=== PATIENT | female | born 2000 | race Two or more races ===

== ENCOUNTER 2021-01-30 18:29 | Emergency (ER) | payer OTHER ==
[~2021-01-30] VITALS: Ht 165.1 cm; Wt 71.2 kg
[2021-01-30] MEDS ORDERED: TRI-LO-SPRINTE1 EACH PO (18:50)
[2021-01-30] MEDS ORDERED: DICLOFENAC SODI75 MG PO (19:41)
== END 2021-01-30 19:56 | disposition home or self-care (01) ==
LOC: ER 18:29
DX: S80.02XA Contusion of left knee, initial encounter (principal); W06.XXXA Fall from bed, initial encounter; Y93.89 Activity, other specified; Y92.092 Bedroom in other non-institutional residence as the place of occurrence of the external cause

== ENCOUNTER 2021-08-06 14:44 | Emergency (ER) | payer OTHER ==
[~2021-08-06] VITALS: Ht 167.6 cm; Wt 70.3 kg
[~2021-08-06 14:44] MED LIST: DICLOFENAC SODI75 MG PO; TRI-LO-SPRINTE1 EACH PO
[2021-08-06] MEDS ORDERED: ZOFRAN8 MG PO (19:07)
[2021-08-06] MEDS ORDERED: PEPCID AC20 MG PO (19:07)
== END 2021-08-06 19:39 | disposition home or self-care (01) ==
LOC: ER 14:44
DX: K52.89 Other specified noninfective gastroenteritis and colitis (principal); Z03.818 Encounter for observation for suspected exposure to other biological agents ruled out; R11.11 Vomiting without nausea

== ENCOUNTER 2022-04-27 18:42 | Emergency (ER) | payer OTHER ==
[~2022-04-27] VITALS: Ht 165.1 cm; Wt 77.1 kg
[~2022-04-27 18:42] MED LIST changes: +PEPCID AC20 MG PO; +ZOFRAN8 MG PO
== END 2022-04-28 00:51 | disposition home or self-care (01) ==
LOC: ER 18:42
DX: L05.01 Pilonidal cyst with abscess (principal)

== ENCOUNTER 2025-08-02 10:00 | Day surgery (SDC) | payer OTHER ==
[2025-07-30 15:07] VITALS: BP 122/85
[~2025-08-02] VITALS: Ht 167.6 cm; Wt 77.1 kg
[2025-08-02] MEDS ORDERED: METRONIDAZOLE/SODIUM CHLORIDE 500 MG/100 ML PIGGYBACK IV ONE (13:50)
[2025-08-02] MEDS ORDERED: CEFTRIAXONE SODIUM 2,000 MG VIAL ONE (13:50)
[2025-08-02] MEDS ORDERED: DIBUCAINE 30 GM TUBE ONE (14:07)
[2025-08-02] MEDS ORDERED: BUPIVACAINE HCL/MPF 0.5% 30ML VIAL ONE (14:07)
[2025-08-02] MEDS ORDERED: POVIDONE-IODINE 118 ML BOTT TOP ONE (14:07)
[2025-08-02] MEDS ORDERED: HEMOSTATIC MATRIX 1 KIT KIT TOP ONE (14:07)
[2025-08-02] MEDS ORDERED: LIDOCAINE HCL 1%/EPINEPHRINE 20ML VIAL IJ ONE (14:07)
[2025-08-02] MEDS ORDERED: TAMSULOSIN HCL 0.4 MG CAP PO ONE (15:15)
[2025-08-02] MEDS ORDERED: AMOX1TAB5 PO (15:23)
[2025-08-02] MEDS ORDERED: INTESTINEX680 M1 PO (15:24)
[2025-08-02] MEDS ORDERED: OXYCODONE HCL5 MG PO (15:24)
== END 2025-08-02 18:30 | disposition home or self-care (01) ==
LOC: CIR.AMB 10:00
PROVIDERS: ATTEND Surgery
DX: L05.01 Pilonidal cyst with abscess (principal); L98.8 Other specified disorders of the skin and subcutaneous tissue